=== PATIENT | male | born 1985 | race Caucasian/White ===

== ENCOUNTER → 2021-08-03 14:23 | Outpatient (BNVA) | payer OTHER, SELFPAY | PROVIDERS: Visit Provider Internal Medicine | DX: S61.213A Laceration without foreign body of left middle finger without damage to nail, initial encounter (principal); W26.8XXA Contact with other sharp object(s), not elsewhere classified, initial encounter | CPT/HCPCS: 12002; 99203 ==

== ENCOUNTER → 2021-08-06 10:55 | Outpatient (BNVA) | payer OTHER, SELFPAY | PROVIDERS: Visit Provider Internal Medicine | DX: S61.213D Laceration without foreign body of left middle finger without damage to nail, subsequent encounter (principal); W26.9XXD Contact with unspecified sharp object(s), subsequent encounter | CPT/HCPCS: 99213 ==

== ENCOUNTER → 2021-08-13 07:52 | Outpatient (BNVA) | payer OTHER, SELFPAY | PROVIDERS: Visit Provider Internal Medicine | DX: S61.211D Laceration without foreign body of left index finger without damage to nail, subsequent encounter (principal); S61.213D Laceration without foreign body of left middle finger without damage to nail, subsequent encounter; W26.9XXD Contact with unspecified sharp object(s), subsequent encounter | CPT/HCPCS: 12011; 99213 ==